=== PATIENT | male | born 2000 | race American Indian/Alaskan Native ===

== ENCOUNTER 2019-11-19 19:04 | Emergency (ER) | payer BC, OTHER ==
[2019-11-19 19:56] LABS: ANION GAP 13.9 mEq/L (7-13); CHLORIDE,CL 101 mmol/L (98-107); SODIUM,NA 138 mmol/L (136-145)
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
== END 2019-11-19 20:12 ==
LOC: DL.ED 19:04
DX: S20.311A Abrasion of right front wall of thorax, initial encounter (principal); F15.10 Other stimulant abuse, uncomplicated; Z91.030 Bee allergy status; F17.210 Nicotine dependence, cigarettes, uncomplicated; R00.0 Tachycardia, unspecified; Y04.0XXA Assault by unarmed brawl or fight, initial encounter
CPT/HCPCS: 36415; 80053; 80305-QW; 80307; 81001; 85025; 99283

== ENCOUNTER 2020-01-01 14:53 | Emergency (ER) | payer BC, OTHER ==
[2020-01-01] MEDS ORDERED: Diphtheria,Pertussis(Acell),Tetanus Vaccine 0.5 ML SDV IM ONE (16:28)
[2020-01-01] MEDS ORDERED: Lidocaine 1% 30 ML SDV INJECT ONE (16:37)
[2020-01-01] MEDS ORDERED: Bacitracin Oint 1 GM U/D Packet TOP ONE (16:37)
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
== END 2020-01-01 17:21 ==
LOC: DL.ED 14:53
DX: S61.512A Laceration without foreign body of left wrist, initial encounter (principal); F17.210 Nicotine dependence, cigarettes, uncomplicated; Z91.030 Bee allergy status; Z23 Encounter for immunization; X78.8XXA Intentional self-harm by other sharp object, initial encounter
CPT/HCPCS: 12001; 90471; 90715; 99283; 99284; J2001

== ENCOUNTER 2020-02-12 18:39 | Emergency (ER) | payer BC ==
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
[2020-02-12 19:40] LABS: ANION GAP 18.2 mEq/L (7-13); CHLORIDE,CL 104 mmol/L (98-107); SODIUM,NA 141 mmol/L (136-145)
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
== END 2020-02-12 20:27 ==
LOC: DL.ED 18:39
DX: S20.211A Contusion of right front wall of thorax, initial encounter (principal); S00.83XA Contusion of other part of head, initial encounter; Y04.0XXA Assault by unarmed brawl or fight, initial encounter; Z91.030 Bee allergy status
CPT/HCPCS: 36415; 70450; 70486; 71101-RT; 72125; 80053; 80305-QW; 81003; 85025; 99285-25